=== PATIENT | female | born 1980 | race Caucasian/White ===

== ENCOUNTER 2021-04-24 11:41 | Emergency (ER) | payer MEDICAID ==
[~2021-04-24] VITALS: Ht 167.6 cm; Wt 77.6 kg
--- NOTE | 2021-04-24 11:45 | NUR ---
JAVIER RAUSCH FOUND HAVING A WITNESSED SEIZURE IN LINE AT A [employer] ST[facility]. STILL SEIZING ON ARRIVAL. 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 PT NOT ALERT, NOT IN RESP DISTRESS. ON MONITOR. SEIZURE PRECAUTIONS IN PLACE. WILL CONTINUE TO MONITOR.
[2021-04-24] MEDS ORDERED: LORAZEPAM INJ 2 MG/ML VIAL IVP ONE (12:00)
[2021-04-24] MEDS ORDERED: IV NS 0.9% 1,000 ML BAG IV ONE ×2 (12:00→14:00)
[2021-04-24] MEDS ORDERED: ONDANSETRON HCL/PF 4 MG/2 ML VIAL IVP ONE (12:00)
[2021-04-24] MEDS ORDERED: ONDANSETRON HCL/PF 4 MG/2 ML VIAL ONE (12:21)
[2021-04-24] MEDS ORDERED: LORAZEPAM INJ 2 MG/ML VIAL ONE (12:22)
--- NOTE | 2021-04-24 12:30 | NUR ---
PT IS AWAKE, AAOX3, LAST THING SHE REMEMBERS WAS GOING TO [facility]. WILL CONTINUE TO MONITOR.
--- NOTE | 2021-04-24 12:35 | NUR ---
URINE SAMPLE OBTAINED AND SENT TO LAB
[2021-04-24 12:36] LABS: UREA NITROGEN, BLOOD 11 mg/dL (7-18)
[2021-04-24 12:43] LABS: ALANINE AMINOTRANSFERASE 48 U/L (12-78); ALBUMIN 4.1 g/dL (3.4-5.0); ALCOHOL, BLOOD < 3 mg/dL (0-0); ALKALINE PHOSPHATASE 54 U/L (46-116); ASPARTATE AMINOTRANSFERASE 149 U/L (15-37); BILIRUBIN,DIRECT 0.3 mg/dL (0.0-0.2); BILIRUBIN,TOTAL 0.7 mg/dL (0.2-1.0); TOTAL PROTEIN, SERUM 8.1 g/dL (6.4-8.2)
[2021-04-24 12:44] LABS: BASOPHILS # (AUTO) 0.1 K/uL (0.0-0.2); BASOPHILS % (AUTO) 0.9 % (0.0-2.0); EOSINOPHILS % (AUTO) 1.1 % (0.0-6.0); HEMATOCRIT 40 % (33-45); HEMOGLOBIN 13.6 g/dL (11.5-14.8); LYMPHOCYTES % (AUTO) 20.1 % (20.0-44.0); MEAN CORPUSCULAR HGB CONC 35 g/dl (31.0-36.0); MEAN CORPUSCULAR VOLUME 119 fL (82-100); MONOCYTES # (AUTO) 0.8 K/uL (0.1-1.30); MONOCYTES % (AUTO) 8.3 % (2.0-12.0); NEUTROPHILS # (AUTO) 6.9 K/uL (1.8-8.9); NEUTROPHILS % (AUTO) 69.6 % (43.0-81.0); PLATELET COUNT (AUTO) 284 K/uL (150-450); RED BLOOD CELL COUNT(AUTO) 3.32 MIL/uL (4.0-5.2); WHITE BLOOD COUNT (AUTO) 9.9 K/uL (4.3-11.0)
[2021-04-24 12:57] LABS: POTASSIUM 3.2 mmol/L (3.5-5.1)
[2021-04-24 12:58] LABS: CALCIUM, SERUM 8.3 mg/dL (8.5-10.1); CARBON DIOXIDE 10 mmol/L (21-32); CHLORIDE 93 mmol/L (98-107); GLUCOSE 153 mg/dL (74-106)
[2021-04-24 12:59] LABS: SODIUM SERUM 134 mmol/L (136-145)
--- NOTE | 2021-04-24 13:01 | NUR ---
VS STABLE, NEEDS MET. Addendum: 04/24/21 at 1301 by NYADEGAR STILL TACHYCARDIC HR 115. ALL OTHER VS STABLE.
[2021-04-24] MEDS ORDERED: CHLO25CA22 PO (13:59)
[2021-04-24] MEDS ORDERED: POTASSIUM CHLORIDE 20 MEQ TAB.PRT.SR PO ONE ×2 (14:00→14:08)
--- NOTE | 2021-04-24 15:03 | NUR ---
IV FLUIDS RUNNING. PT TOLERATING WELL.
--- NOTE | 2021-04-24 15:31 | NUR ---
IV removed. Catheter intact and site benign. Pressure and 4x4 applied to site. No bleeding noted.
[2021-04-24 15:32] VITALS: BP 133/83
--- NOTE | 2021-04-24 15:32 | NUR ---
Patient discharged to home in stable condition. Written and verbal after care instructions given. Patient verbalizes understanding of instruction.
[2021-04-24 17:10] LABS: PHENYTOIN (DILANTIN) 0.5 ug/ml (10.0-20.0)
[2021-04-24 17:17] LABS: VALPROIC ACID < 3 ug/mL (50-100)
== END 2021-04-24 15:32 | disposition home or self-care (01) ==
LOC: ER 12:04
DX: R56.9 Unspecified convulsions (principal); E87.6 Hypokalemia; Z59.00 Homelessness unspecified
CPT/HCPCS: 36415; 70450; 71045; 80048; 80076; 80164; 80185; 80307; 80320; 85025; 93005; 96361; 96374; 96375; 99285; J2060; J2405; J7030 ×2; G0480